=== PATIENT | female | born 1930 ===

== ENCOUNTER 2017-01-10 07:12 | Emergency (ER) | payer MEDICARE, MEDICAID ==
[~2017-01-10] VITALS: Ht 160 cm; Wt 90.7 kg
[~2017-01-10 07:12] MED LIST: QUETIAPINE FUM100 MG PO; SYNTHROID25 MCG ORAL; SYNTHROID25 MCG PO
--- NOTE | 2017-01-10 07:27 | Emergency Room Report ---
History of Present Illness General Chief Complaint: Abdominal Pain Source: Patient Present Illness HPI Patient present with complaints of right lower abdominal pain Pain started approximately 4 hours ago Waking the patient up from her sleep 10 out of 10 sharp Denies any vomiting or diarrhea denies any fevers or chills Patient has had a previous tubal ligation Denies any recent fall or trauma Pain is constant does not change with position or movement Allergies: Coded Allergies: No Known Allergies (Verified , 07/05/08) Patient History Past Medical History: see triage record Pertinent Family History: none Reviewed Nursing Documentation: PMH: Agreed, PSxH: Agreed Nursing Documentation-PMH Past Medical History: No History, Except For Review of Systems All Other Systems: negative except mentioned in HPI Physical Exam Vital Signs Date Time Temp Pulse Resp B/P Pulse Ox O2 Delivery O2 Flow Rate FiO2 01/10/17 07:09 97.9 71 16 144/82 95 Room Air Sp02 EP Interpretation: reviewed, normal General Appearance: moderate distress - Appears in acute pain Head: normocephalic, atraumatic Eyes: bilateral eye EOMI, bilateral eye PERRL ENT: hearing grossly normal, normal pharynx, TMs + canals normal, uvula midline Neck: full range of motion, supple, no meningismus, no bony tend Respiratory: lungs clear, normal breath sounds, no rhonchi, no respiratory distress, no retraction, no accessory muscle use Cardiovascular #1: normal peripheral pulses, regular rate, rhythm, no edema, no gallop, no JVD, no murmur Gastrointestinal: normal bowel sounds, soft, no mass, no organomegaly, non- distended, no guarding, no hernia, no pulsatile mass, no rebound, tenderness - right lower quadrant Genitourinary: no CVA tenderness Musculoskeletal: normal inspection Neurologic: oriented x3, responsive, 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, motor strength/ tone normal, sensory intact Psychiatric: mood/affect normal Skin: other - Combination of long-standing rash also appearance of fungal infection below the breast Lymphatic: normal inspection, no adenopathy Medical Decision Making Diagnostic Impression: Primary Impression: Renal colic on right side ER Course With the history exam and presentation, multiple differentials considered, including but not limited to appendicitis, gastritis, cholecystitis, diverticulitis Patient's CT imaging reveals right-sided distal ureteral kidney stone No obvious hydro is associated with this Patient is on significantly better with acute intervention Given the resolution of pain And the patient's general evaluation no signs of any other infectious pathology Patient stable for close outpatient followup Labs Test 01/10/17 07:20 01/10/17 09:00 White Blood Count 9.2 K/UL (4.8-10.8) Red Blood Count 5.20 M/UL (4.20-5.40) Hemoglobin 15.9 G/DL (12.0-16.0) Hematocrit 49.9 % (37.0-47.0) Mean Corpuscular Volume 96 FL (80-99) Mean Corpuscular Hemoglobin 30.5 PG (27.0-31.0) Mean Corpuscular Hemoglobin Concent 31.8 G/DL (32.0-36.0) Red Cell Distribution Width 12.9 % (11.6-14.8) Platelet Count 316 K/UL (150-450) Mean Platelet Volume 6.6 FL (6.5-10.1) Neutrophils (%) (Auto) 59.2 % (45.0-75.0) Lymphocytes (%) (Auto) 29.0 % (20.0-45.0) Monocytes (%) (Auto) 6.8 % (1.0-10.0) Eosinophils (%) (Auto) 3.6 % (0.0-3.0) Basophils (%) (Auto) 1.5 % (0.0-2.0) Prothrombin Time 10.9 SEC (9.30-11.50) Prothromb Time International Ratio 1.1 (0.9-1.1) Activated Partial Thromboplast Time 25 SEC (23-33) Sodium Level 140 mEQ/L (135-145) Potassium Level 3.9 mEQ/L (3.4-4.9) Chloride Level 98 mEQ/L (98-107) Carbon Dioxide Level 27 mEQ/L (20-30) Anion Gap 15 (5-15) Blood Urea Nitrogen 10 mg/dL (7-23) Creatinine 0.8 mg/dL (0.5-0.9) Estimat Glomerular Filtration Rate mL/min (>60) Glucose Level 132 mg/dL (74-106) Calcium Level 9.8 mg/dL (8.6-10.2) Total Bilirubin 0.4 mg/dL (0.0-1.2) Aspartate Amino Transf (AST/SGOT) 18 U/L (5-40) Alanine Aminotransferase (ALT/SGPT) 10 U/L (3-33) Alkaline Phosphatase 101 U/L (35-104) Total Protein 6.6 g/dL (6.6-8.7) Albumin 3.9 g/dL (3.5-5.2) Globulin 2.7 g/dL Albumin/Globulin Ratio 1.4 (1.0-2.7) Lipase 53 U/L (< 60) Urine Color Yellow Urine Appearance Clear Urine pH 5 (4.5-8.0) Urine Specific Leon 1.015 (1.005-1.035) Urine Protein 1+ (NEGATIVE) Urine Glucose (UA) Negative (NEGATIVE) Urine Ketones Negative (NEGATIVE) Urine Occult Blood 5+ (NEGATIVE) Urine Nitrite Negative (NEGATIVE) Urine Bilirubin Negative (NEGATIVE) Urine Urobilinogen Normal MG/DL (0.0-1.0) Urine Leukocyte Esterase 1+ (NEGATIVE) Urine RBC 20-30 /HPF (0 - 2) Urine WBC 2-4 /HPF (0 - 2) Urine Squamous Epithelial Cells Few /LPF (NONE/OCC) Urine Bacteria Few /HPF (NONE) Urine Mucus Few /LPF (NONE/OCC) Rhythm Strip Diag. Results EP Interpretation: yes Rate: 66 Rhythm: NSR, no PVC's, no ectopy CT/MRI/US Diagnostic Results CT/MRI/US Diagnostic Results : Impression CT abdomen pelvisImpression: Positive for 2 mm right distal ureteral calculus, resulting in mild hydronephrosis and hydroureter Diverticulosis. No evidence of diverticulitis Mildly ectatic common bile duct without definite downstream obstructing lesion. Probably related to senescent changes. Nonetheless, correlation with liver function tests is recommended Porcelain gallbladder Hiatal hernia Subcentimeter low-attenuation left renal lesion, too small to characterize. No followup necessary Incidental finding of degenerative spondylosis Last Vital Signs Date Time Temp Pulse Resp B/P Pulse Ox O2 Delivery O2 Flow Rate FiO2 01/10/17 07:09 97.9 71 16 144/82 95 Room Air Status: improved Disposition: HOME, SELF-CARE Condition: Improved Scripts Hydrocodone Bit/Acetaminophen 5-325* (NORCO 5-325*) 1 Each Tablet 1 TAB ORAL Q6H Y for For Pain, #10 TAB 0 Refills Prov: NAVEEN NASH D.O. 01/10/17 Ibuprofen* (MOTRIN*) 600 Mg Tablet 600 MG ORAL Q8H Y for For Pain, #30 TAB 0 Refills Prov: NAVEEN NASH D.O. 01/10/17 Tamsulosin Hcl (TAMSULOSIN HCL*) 0.4 Mg Cap.er.24h 0.4 MG ORAL BEDTIME for 7 Days, CAP Prov: NAVEEN NASH D.O. 01/10/17 Additional Instructions: Patient is provided with the discharge instructions notified to follow up with primary doctor in the next 2-3 days otherwise return to the er with any worsening symptoms. Please note that this report is being documented using [employer] technology. This can lead to erroneous entry secondary to incorrect interpretation by the dictating instrument. NAVEEN NASH D.O. Jan 10, 2017 07:27
[2017-01-10] MEDS ORDERED: Morphine Sulfate 4mg/ml Inj IVP ONE ×2 (07:30→08:00)
[2017-01-10 07:40] LABS: BASOPHILS % (AUTO) 1.5 % (0.0-2.0); EOSINOPHILS % (AUTO) 3.6 % (0.0-3.0); MEAN CORPUSCULAR HEMOGLOBIN 30.5 PG (27.0-31.0); MEAN CORPUSCULAR HGB CONC 31.8 G/DL (32.0-36.0); MEAN CORPUSCULAR VOLUME 96 FL (80-99); MEAN PLATELET VOLUME 6.6 FL (6.5-10.1); MONOCYTES % (AUTO) 6.8 % (1.0-10.0); NEUTROPHILS % (AUTO) 59.2 % (45.0-75.0); PLATELET COUNT 316 K/UL (150-450); RED CELL DISTRIBUTION WIDTH 12.9 % (11.6-14.8); WHITE BLOOD COUNT 9.2 K/UL (4.8-10.8)
[2017-01-10 07:45] LABS: INR 1.1 (0.9-1.1); PROTHROMBIN TIME 10.9 SEC (9.30-11.50)
[2017-01-10 07:47] LABS: ALANINE AMINOTRANSFERASE 10 U/L (3-33); ALBUMIN/GLOBULIN RATIO 1.4 (1.0-2.7); ANION GAP 15 (5-15); ASPARTATE AMINO TRANSFERASE 18 U/L (5-40); CALCIUM 9.8 mg/dL (8.6-10.2); CARBON DIOXIDE 27 mEQ/L (20-30); CHLORIDE 98 mEQ/L (98-107); CREATININE 0.8 mg/dL (0.5-0.9); HEMOLYSIS 3; LIPASE 53 U/L (< 60); POTASSIUM 3.9 mEQ/L (3.4-4.9); SODIUM 140 mEQ/L (135-145); TOTAL PROTEIN 6.6 g/dL (6.6-8.7)
[2017-01-10 07:50] VITALS: BP 115/62
--- NOTE | 2017-01-10 08:57 | Diagnostic Imaging Report ---
Clinical Indication: Right lower abdominal pain, started approximately 4 hours ago, 10 out of 10 Technique: No oral contrast utilized, per emergency room physician request IV administration nonionic contrast. Venous phase spiral acquisition obtained through the abdomen and pelvis. Multiplanar reconstructions were generated. Total dose length product 840 mGycm. CTDIvol(s) 18 mGy Comparison: None Findings: There is a tiny calculus at the right ureterovesical junction, measures approximately 2 mm diameter. This results in mild right hydronephrosis and hydroureter no intrarenal calculi. No left renal or ureteral calculi, hydronephrosis or hydroureter. The left kidney demonstrates a subcentimeter low-attenuation lesion which is too small to characterize, most likely benign simple cortical cyst. Lack of enteric contrast severely limits assessment of the GI tract. There is fairly extensive colonic diverticulosis. No evidence of diverticulitis. The appendix is not definitely demonstrated, but there are no findings to suggest acute appendicitis. No small bowel distention. No free or loculated intraperitoneal air or fluid. There is a small to moderate-sized hiatal hernia. Stomach and duodenum are unremarkable. The gallbladder demonstrates wall calcification, consistent with so-called porcelain gallbladder. No gross gallstones, gallbladder wall thickening, or pericholecystic inflammation. There is mild ectasia of the common bile duct, which measures approximately 7 mm in diameter, without definite obstructing lesion is demonstrated. The liver, pancreas, spleen, adrenals are unremarkable. No pelvic mass or adenopathy. The included lung bases are clear. There are degenerative changes of the lumbar spine. Impression: Positive for 2 mm right distal ureteral calculus, resulting in mild hydronephrosis and hydroureter Diverticulosis. No evidence of diverticulitis Mildly ectatic common bile duct without definite downstream obstructing lesion. Probably related to senescent changes. Nonetheless, correlation with liver function tests is recommended Porcelain gallbladder Hiatal hernia Subcentimeter low-attenuation left renal lesion, too small to characterize. No followup necessary Incidental finding of degenerative spondylosis The CT scanner at [facility] is accredited by the [employer] and the scans are performed using protocols designed to limit radiation exposure to as low as reasonably achievable to attain images of sufficient resolution adequate for diagnostic evaluation.
[2017-01-10] MEDS ORDERED: Ketorolac 30mg Inj IV ONE (09:00)
[2017-01-10 09:11] LABS: APPEARANCE,URINE CLEAR; KETONES,URINE NEGATIVE (NEGATIVE); LEUKOCYTE ESTERASE ,URINE 1+ (NEGATIVE); NITRITE,URINE NEGATIVE (NEGATIVE); PH,URINE 5 (4.5-8.0); PROTEIN,URINE 1+ (NEGATIVE); UROBILINOGEN,URINE NORMAL MG/DL (0.0-1.0)
[2017-01-10 09:29] LABS: BACTERIA,URINE FEW /HPF; MUCUS,URINE FEW /LPF (NONE/OCC); RBC,URINE 20-30 /HPF (0 - 2); SQUAMOUS EPITHELIAL CELL,UR FEW /LPF (NONE/OCC)
[2017-01-10 09:48] VITALS: BP 107/75
[2017-01-10] MEDS ORDERED: TAMSULOSIN HCL0.4 MG ORAL (10:36)
[2017-01-10] MEDS ORDERED: IBUPROFEN600 MG ORAL (10:36)
[2017-01-10] MEDS ORDERED: NORCO 5-325 TA1 EACH ORAL (10:36)
[2017-01-10 10:58] VITALS: BP 105/61
[2017-01-10 11:00] VITALS: BP 105/61
== END 2017-01-10 11:05 | disposition home or self-care (01) ==
LOC: EDBD 07:12 → EMR 07:54
DX: N13.2 Hydronephrosis with renal and ureteral calculous obstruction (principal); N13.4 Hydroureter; K57.30 Diverticulosis of large intestine without perforation or abscess without bleeding; K44.9 Diaphragmatic hernia without obstruction or gangrene
CPT/HCPCS: 36415; 74177; 80053; 81003; 83690; 85025; 85610; 85730; 96374; 96375; 99284; J1885; J2270; J2405; J7040; Q9967